=== PATIENT | male | born 2005 | race African-American/Black ===

== ENCOUNTER 2024-03-15 16:01 | Emergency (ER) | payer OTHER, SELFPAY ==
--- NOTE | ~2024-03-15 | XR_ITS ---
EXAM: XR thoracic spine 3V DATE: 03/15/2024 16:49 HISTORY: back pain . COMPARISON: None available. FINDINGS: Vertebral body alignment intact. Vertebral body heights preserved. No disc space narrowing . No traumatic malalignment or fracture. Visualized lung parenchyma is clear. IMPRESSION: No acute fracture or traumatic malalignment detected in the thoracic spine. Reviewed, dictated and finalized at location K. IMPRESSION: No acute fracture or traumatic malalignment detected in the thoraci c spine.
--- NOTE | ~2024-03-15 | XR_ITS ---
EXAM: XR lumbar spine 2-3V DATE: 03/15/2024 16:49 HISTORY: back pain . COMPARISON: None available. FINDINGS: 5 nonrib-bearing lumbar-type vertebral bodies. Pedicles intact. Normal vertebral body alig nment. Vertebral body heights preserved. Disc spaces maintained. Normal facets and posterior elements . No fracture or dislocation. IMPRESSION: No acute fracture or traumatic malalignment detected in the lumbar spine. Reviewed, dictated and finalized at location K.
[2024-03-15 16:03] VITALS: BP 146/91; PULSE 62; RESP 20; TEMP 36; O2SAT 100
--- NOTE | 2024-03-15 16:21 | PC.NURSE ---
Pt resting comfortably texting on phone. CMS intact to bilateral legs
--- NOTE | 2024-03-15 16:37 | ED.BACK ---
HPI - Back Pain/Injury General Chief Complaint: Back Pain/Injury Stated Complaint: back pain Time Seen by Provider: 03/15/24 16:03 History of Present Illness HPI Narrative: 18-year-old male presenting to the emergency department for evaluation of mid back pain. Patient denies any prior history of back surgery. Patient states he was lifting a box at work and had acute onset of back pain. Patient denies any associated numbness or weakness with this. Patient does have prior history of back pain. Patient denies any loss of bowel or bladder control. Related Data Allergies Allergy/AdvReac Type Severity Reaction Status Date / Time No Known Allergies Allergy Verified 03/15/24 16:02 Review of Systems Review of Systems: All systems reviewed & are unremarkable except as noted in HPI and below Exam Narrative: APPEARANCE: Well appearing, no pain, no distress, well-nourished. HEAD: normocephalic, atraumatic. EYES: PERRLA/EOMI, conjunctivae clear. NOSE: Normal no drainage EARS:TMS clear with good light reflex. THROAT: Pharynx clear, no exudate. NECK: Supple. No adenopathy, no masses. RESPIRATORY: Airway patent, respirations nonlabored. Clear to auscultation bilaterally, no rales, rhonchi, wheezing. CARDIOVASCULAR: Regular rate and rhythm without murmurs rubs or gallops. ABDOMINAL: Soft, nontender, nondistended, normal bowel sounds MUSCULOSKELETAL: Midline thoracic tenderness to palpation, lower back tenderness to palpation NEURO: Alert. Cranial nerves II through XII intact. Grossly intact SKIN: Warm, dry. Normal Color Course Vital Signs Vital signs: Vital Signs Temperature 96.8 F L 03/15/24 16:03 Pulse Rate 62 03/15/24 16:03 Respiratory Rate 20 03/15/24 16:03 Blood Pressure 146/91 H 03/15/24 16:03 Pulse Oximetry 100 03/15/24 16:03 Oxygen Delivery Room Air 03/15/24 16:03 Temperature 98.0 F 03/15/24 17:37 Pulse Rate 64 03/15/24 17:37 Respiratory Rate 16 03/15/24 17:37 Blood Pressure 140/88 03/15/24 17:37 Pulse Oximetry 100 03/15/24 17:37 Oxygen Delivery Room Air 03/15/24 16:03 MDM - Back Pain/Injury MDM Narrative Medical decision making narrative: 18-year-old male presents to the ED for evaluation of mid and low back pain. Patient denies any associated numbness or weakness. X-rays were negative for acute fracture dislocation. Patient will be provided a Flexeril for muscle spasm. Patient was advised to take Tylenol and ibuprofen for pain control. Differential Diagnosis Differential diagnosis: Likely lumbar radiculopathy and strain of lumbar region Imaging Data Radiologist's impression: Impressions Lumbar Spine X-Ray 03/15/24 16:59 IMPRESSION: No acute fracture or traumatic malalignment detected in the lumbar spine. Thoracic Spine X-Ray 03/15/24 16:59 IMPRESSION: No acute fracture or traumatic malalignment detected in the thoracic spine. Discharge Plan Discharge Clinical Impression: Back strain Patient Disposition: Home, Self-Care Condition: Stable Instructions: Antibiotic Form, Back Pain (ED) Additional Instructions: Tylenol and ibuprofen for pain control. Flexeril for muscle spasm. Have close follow-up with your primary care physician. If you have any worsening symptoms then please call or return to the emergency department. Prescriptions: New cyclobenzaprine 10 mg tablet 10 mg PO BID PRN (Reason: muscle spasm) Qty: 14 0RF Follow-up/Referrals: PHYSICIAN NOT ON STAFF,NONSTAFF [Primary Care Provider] - Stand Alone Forms: Work/School Release IP
[2024-03-15] MEDS: CYCLOBENZAPRINE HCL 10 MG TABLET PO (17:02)
[2024-03-15] MEDS: IBUPROFEN 400 MG TABLET 800 MG PO (17:02)
[2024-03-15 17:37] VITALS: BP 140/88; PULSE 64; RESP 16; TEMP 36.7; O2SAT 100
== END 2024-03-15 17:39 | disposition home or self-care (01) ==
PROVIDERS: Emergency Provider Emergency Medicine
DX: S29.012A Strain of muscle and tendon of back wall of thorax, initial encounter (principal); X50.0XXA Overexertion from strenuous movement or load, initial encounter
CPT/HCPCS: 72072; 72100; 99283; A9270